=== PATIENT | male | born 1985 | race Hispanic/Latino ===

== ENCOUNTER 2022-03-22 03:38 | Emergency (ER) | payer BC, SELFPAY ==
[2022-03-22] MEDS ORDERED: ONDANSETRON 4 MG/2 ML VIAL ONE (04:12)
[2022-03-22] MEDS ORDERED: MORPHINE 4 MG/ML SYR ONE (04:12)
[2022-03-22 04:21] LABS: Absolute Lymphocytes (CBC) 3.1 K/uL (0.7-4.9); Hematocrit 43.6 % (39.6-49.0); Lymphocytes % 33.3 % (15.3-44.8); MCV 85.9 fL (80-100); MPV 7.7 fL (7.6-11.3); RBC Red Blood Cell Count 5.07 M/uL (4.33-5.43)
[2022-03-22] MEDS ORDERED: NA CHLORIDE 0.9% 1,000 ML ONE (04:24)
[2022-03-22] MEDS ORDERED: HYDROMORPHONE HCL 1 MG/ML INJ ONE (04:27)
[2022-03-22 04:50] LABS: Albumin 3.8 g/dL (3.4-5.0); Bilirubin Total 1.1 mg/dL (0.2-1.0); Potassium 3.2 mmol/L (3.5-5.1); Protein, Total 7.9 g/dL (6.4-8.2)
[2022-03-22] MEDS ORDERED: FENTANYL CITR 100 MCG/2 ML ONE (05:05)
[2022-03-22] MEDS ORDERED: KETOROLAC 30 MG/ML INJ ONE ×2 (06:07→09:05)
--- NOTE | 2022-03-22 10:01 | RAD REPORT ---
EXAM DESCRIPTION: US - Abdomen Exam Limited - 03/22/2022 9:44 am CLINICAL HISTORY: gallbladder COMPARISON: Abdomen Pelvis W Contrast dated 03/22/2022bdomen Pelvis W Contrast dated 03/22/2022 FINDINGS: Several small echogenic foci are seen near the neck of the gallbladder. Posterior acoustic shadowing is seen on a few of the small foci. Small gallstone etiology is favored over polyps. Trace amount of sludge is seen. There is no wall thickening or pericholecystic fluid. No common duct stone or biliary tree dilatation identified. IMPRESSION: Several small less than 5 mm gallstones are present. No wall thickening or pericholecyst ic fluid. No biliary tree abnormality.
--- NOTE | 2022-03-22 10:20 | ER ---
Nurse's Notes [facility] Name: Paulino Lawrence Age: 36 yrs Sex: Male : 1985 Arrival Date: 03/22/2022 Time: 03:40 Bed 6 Private MD: Diagnosis: Other cholelithiasis without obstruction Presentation: 03/22 03:53 Chief complaint: Patient states: "It is so bad, it hurts like hell. I tried to make tw5 myself throw up earlier." Spouse and/or significant other states: "His abdominal pain started around midnight and it has only gotten worse.". Coronavirus screen: Vaccine status: Patient reports receiving the 2nd dose of the covid vaccine. [employer]. Ebola Screen: Patient negative for fever greater than or equal to 101.5 degrees Fahrenheit, and additional compatible Ebola Virus Disease symptoms Patient denies exposure to infectious person. Patient denies travel to an Ebola-affected area in the 21 days before illness onset. Initial Sepsis Screen: Does the patient meet any 2 criteria? No. Patient's initial sepsis screen is negative. Does the patient have a suspected source of infection? Yes: Acute abdominal pain. Risk Assessment: Do you want to hurt yourself or someone else? Patient reports no desire to harm self or others. Onset of symptoms was March 22, 2022 at 00:00. 03:53 Method Of Arrival: Ambulatory tw5 03:53 Acuity: TIN 3 tw5 04:37 Note Pt respirations even non labored denies itching no redness noted. Triage Assessment: 03:54 General: Appears uncomfortable, Behavior is appropriate for age, restless. Pain: tw5 Complains of pain in epigastric area and right upper quadrant Pain currently is 10 out of 10 on a pain scale. GI: Abdomen is non-distended. Historical: - Allergies: 03:54 Hydrocodone-Acetaminophen; tw5 - Home Meds: 03:54 None [Active]; tw5 - PMHx: 03:54 None; tw5 - PSHx: 03:54 Appendectomy; tw5 - Immunization history:: Flu vaccine is not up to date. - Social history:: Smoking status: Patient denies any tobacco usage or history of. Screenin:50 Abuse screen: Denies threats or abuse. Nutritional screening: No deficits noted. jb4 Tuberculosis screening: No symptoms or risk factors identified. Fall Risk None identified. Assessment: 03:50 General: Appears in no apparent distress. uncomfortable, Behavior is calm, cooperative, jb4 appropriate for age. Pain: Complains of pain in abdomen Pain does not radiate. Pain currently is 10 out of 10 on a pain scale. Neuro: Level of Consciousness is awake, alert, obeys commands. Cardiovascular: Patient's skin is warm and dry. Respiratory: Airway is patent Respiratory effort is even, unlabored, Respiratory pattern is regular, symmetrical. GI: Bowel sounds present X 4 quads. Abd is soft X 4 quads Abdomen is tender to palpation X 4 quads. Reports nausea, vomiting. Derm: Skin is intact, Skin is pink, warm \\T\\ dry. Musculoskeletal: Circulation, motion, and sensation intact. Range of motion: intact in all extremities. 05:00 Reassessment: Patient appears in no apparent distress at this time. Patient and/or jb4 family updated on plan of care and expected duration. Pain level reassessed. Patient is alert, oriented x 3, equal unlabored respirations, skin warm/dry/pink. 06:00 Reassessment: Patient appears in no apparent distress at this time. Patient and/or jb4 family updated on plan of care and expected duration. Pain level reassessed. Patient is alert, oriented x 3, equal unlabored respirations, skin warm/dry/pink. 07:00 Reassessment: RECD REPORT FROM ZACH GOMEZ. 36YO HM P/W ABDOMINAL PAIN. U/S PENDING. bp 09:00 Reassessment: No changes from previously documented assessment. Patient and/or family bp updated on plan of care and expected duration. Pain level reassessed. U/S PENDING. AWARE. 09:30 Reassessment: U/S AT B/S. bp 09:41 Reassessment: PER U/S TECH, INITIAL RESULTS UNREMARKABLE. FINAL RESULTS PENDING. bp 10:29 Reassessment: PT D/C HOME AMBULATORY, DX WITH CHOLELITHIASIS. bp Vital Signs: 03:53 BP 119 / 71; Pulse 62; Resp 18; Temp 98.1; Pulse Ox 97% on R/A; Weight 83.91 kg; Height tw5 5 ft. 5 in. (165.10 cm); Pain 10/10; 04:45 BP 138 / 80; Pulse 59; Resp 16; Pulse Ox 100% on R/A; jb4 06:00 BP 135 / 87; Pulse 59; Resp 18; Pulse Ox 100% on R/A; jb4 06:44 BP 118 / 75; Pulse Ox 100% on R/A; kl 09:19 BP 115 / 78; Pulse 62; Resp 16; Pulse Ox 100% ; bp 03:53 Body Mass Index 30.79 (83.91 kg, 165.10 cm) tw5 ED Course: 03:40 Patient arrived in ED. bp1 03:49 Saúl Betancourt, RN is Primary Nurse. jb4 03:50 Gerson Vernon MD is Attending Physician. kdr 03:50 Initial lab(s) drawn, by me, sent to lab. Inserted saline lock: 18 gauge in right jb4 antecubital area, using aseptic technique. Blood collected. 03:54 Triage completed. tw5 03:54 Arm band placed on right wrist. tw5 03:56 Placed in gown. Pulse ox on. NIBP on. Door closed. tw5 05:39 CT Abd/Pelvis - IV Contrast Only In Process Unspecified. EDMS 06:44 Bladder scan completed. 161. kl 06:57 No apparent distress. Resting quietly. kl 07:13 Primary Nurse role handed off by Saúl Betancourt RN jl7 07:15 Edwin Hernandez, PATRICIA is Primary Nurse. bp 07:18 Attending Physician role handed off by Gerson Vernon MD sd2 07:18 Latosha Black MD is Attending Physician. sd2 09:45 US Abdomen Limited In Process Unspecified. EDMS 10:19 Buddy Harvey MD is Referral Physician. sd2 10:29 No provider procedures requiring assistance completed. IV discontinued, intact, bp bleeding controlled, No redness/swelling at site. Pressure dressing applied. Administered Medications: 04:08 Drug: morphine 4 mg Route: IVP; Infused Over: 4 mins; Site: right antecubital; kl 04:37 Follow up: Response: No adverse reaction kl 04:08 Drug: Zofran (Ondansetron) 4 mg Route: IVP; Site: right antecubital; kl 09:00 Follow up: Response: No adverse reaction bp 04:10 Not Given (Duplicate Order): morphine 4 mg IVP once over 4 mins jb4 04:10 Not Given (Duplicate Order): Zofran (Ondansetron) 4 mg IVP once; over 2 minutes jb4 04:18 Drug: NS 0.9% 1000 ml Route: IV; Rate: 1 bolus; Site: right antecubital; jb4 10:30 Follow up: IV Status: Infusion continued; IV Intake: 1000ml bp 04:24 Not Given (Physician Discretion): fentaNYL (PF) 50 mcg IVP once kl 04:24 Drug: Dilaudid (HYDROmorphone) 1 mg Route: IVP; Site: right antecubital; kl 04:37 Follow up: Response: No adverse reaction kl 05:00 Drug: fentaNYL (PF) 50 mcg Route: IVP; Site: right antecubital; jb4 09:00 Follow up: Response: No adverse reaction bp 06:07 Drug: Ketorolac 15 mg Route: IVP; Site: right antecubital; kl 06:30 Follow up: Response: Marked relief of symptoms kl 08:59 Drug: Ketorolac 15 mg Route: IVP; Site: right antecubital; bp 10:30 Follow up: Response: No adverse reaction; Pain is decreased bp Medication: 03:50 VIS not applicable for this client. jb4 Intake: 10:30 IV: 1000ml; Total: 1000ml. bp Outcome: 10:20 Discharge ordered by . sd2 10:29 Discharged to home ambulatory. bp 10:29 Condition: stable 10:29 Discharge instructions given to patient, Instructed on discharge instructions, follow up and referral plans. medication usage, Demonstrated understanding of instructions, follow-up care, medications, Prescriptions given X 2. 10:30 Patient left the ED. bp Signatures: Dispatcher [employer] EDMS Corinne Strickland RN RN kl Rittger, Kevin, MD MD kdr Bryson, James, RN RN jb4 Jourdan Brandon RN RN jl7 Edwin Hernandez RN RN bp Paniauga, Brittany bp1 Wood, Tiffany 5 Latosha Black MD MD sd2
--- NOTE | 2022-03-22 10:20 | EDPHYS ---
Physician Documentation [facility] Name: Paulino Lawrence Age: 36 yrs Sex: Male : 1985 Arrival Date: 03/22/2022 Time: 03:40 Bed 6 Private MD: ED Physician Latosha Black HPI: 03/22 04:07 This 36 yrs old Male presents to ER via Ambulatory with complaints of kdr Abdominal Pain. 04:07 The patient presents with abdominal pain that is diffuse. Onset: The symptoms/episode kdr began/occurred acutely, suddenly, at 00:00. The symptoms do not radiate. Associated signs and symptoms: Pertinent positives: nausea. The symptoms are described as achy, crampy, sharp, waxing/waning. Modifying factors: The symptoms are alleviated by nothing, the symptoms are aggravated by nothing. Severity of pain: At its worst the pain was severe incapacitating in the emergency department the pain is actually worse. The patient has experienced similar episodes in the past, a few times. The patient has not recently seen a physician. Historical: - Allergies: 03:54 Hydrocodone-Acetaminophen; tw5 - Home Meds: 03:54 None [Active]; tw5 - PMHx: 03:54 None; tw5 - PSHx: 03:54 Appendectomy; tw5 - Immunization history:: Flu vaccine is not up to date. - Social history:: Smoking status: Patient denies any tobacco usage or history of. ROS: 04:07 Constitutional: Negative for fever, chills, and weight loss, Eyes: Negative for injury, kdr pain, redness, and discharge, ENT: Negative for injury, pain, and discharge, Neck: Negative for injury, pain, and swelling, Cardiovascular: Negative for chest pain, palpitations, and edema, Respiratory: Negative for shortness of breath, cough, wheezing, and pleuritic chest pain, Back: Negative for injury and pain, : Negative for injury, bleeding, discharge, and swelling, MS/Extremity: Negative for injury and deformity, Skin: Negative for injury, rash, and discoloration, Neuro: Negative for headache, weakness, numbness, tingling, and seizure activity. Psych: Negative for depression, anxiety, suicide ideation, homicidal ideation, and hallucinations, Allergy/Immunology: Negative for hives, rash, and allergies, Endocrine: Negative for neck swelling, polydipsia, polyuria, polyphagia, and marked weight changes, Hematologic/Lymphatic: Negative for swollen nodes, abnormal bleeding, and unusual bruising. 04:07 Abdomen/GI: Positive for abdominal pain, nausea, Negative for vomiting, diarrhea, constipation, abdominal cramps, abdominal distension, anorexia, dysphagia, hematemesis, black/tarry stool, rectal pain, rectal bleeding, bowel incontinence. Exam: 04:07 Constitutional: This is a well developed, well nourished patient who is awake, alert, kdr and in no acute distress. Head/Face: Normocephalic, atraumatic. Eyes: Pupils equal round and reactive to light, extra-ocular motions intact. Lids and lashes normal. Conjunctiva and sclera are non-icteric and not injected. Cornea within normal limits. Periorbital areas with no swelling, redness, or edema. Neck: Trachea midline, no thyromegaly or masses palpated, and no cervical lymphadenopathy. Supple, full range of motion without nuchal rigidity, or vertebral point tenderness. No Meningismus. Chest/axilla: Normal chest wall appearance and motion. Nontender with no deformity. No lesions are appreciated. Cardiovascular: Regular rate and rhythm with a normal S1 and S2. No gallops, murmurs, or rubs. Normal PMI, no JVD. No pulse deficits. Respiratory: Lungs have equal breath sounds bilaterally, clear to auscultation and percussion. No rales, rhonchi or wheezes noted. No increased work of breathing, no retractions or nasal flaring. Back: No spinal tenderness. No costovertebral tenderness. Full range of motion. Skin: Warm, dry with normal turgor. Normal color with no rashes, no lesions, and no evidence of cellulitis. MS/ Extremity: Pulses equal, no cyanosis. Neurovascular intact. Full, normal range of motion. Neuro: Awake and alert, GCS 15, oriented to person, place, time, and situation. Cranial nerves II-XII grossly intact. Motor strength 5/5 in all extremities. Sensory grossly intact. Cerebellar exam normal. Normal gait. Psych: Awake, alert, with orientation to person, place and time. Behavior, mood, and affect are within normal limits. 04:07 Abdomen/GI: Inspection: abdomen appears normal, Bowel sounds: diminished, in all quadrants, Palpation: mild abdominal tenderness, in all quadrants. Vital Signs: 03:53 BP 119 / 71; Pulse 62; Resp 18; Temp 98.1; Pulse Ox 97% on R/A; Weight 83.91 kg; Height tw5 5 ft. 5 in. (165.10 cm); Pain 10/10; 04:45 BP 138 / 80; Pulse 59; Resp 16; Pulse Ox 100% on R/A; jb4 06:00 BP 135 / 87; Pulse 59; Resp 18; Pulse Ox 100% on R/A; jb4 06:44 BP 118 / 75; Pulse Ox 100% on R/A; kl 09:19 BP 115 / 78; Pulse 62; Resp 16; Pulse Ox 100% ; bp 03:53 Body Mass Index 30.79 (83.91 kg, 165.10 cm) tw5 MDM: 04:07 Data reviewed: vital signs, nurses notes, lab test result(s), radiologic studies. kdr Counseling: I had a detailed discussion with the patient and/or guardian regarding: the historical points, exam findings, and any diagnostic results supporting the discharge/admit diagnosis, lab results, radiology results. 07:18 Transition of care: Care assumed from Gerson Vernon MD. ED course: Pt pending US. CT sd2 scan with cholelithiasis. Labs unremarkable. Will re-evaluate pain control after US for disposition.. 07:19 Patient medically screened. sd2 10:17 ED course: US with cholelithiasis but no evidence of cholecystitis. Normal CBD sd2 diameter. Pt's pain controlled with Toradol. Advised of all results and need for follow up outpatient with general surgery and dietary changes to be made. Pt comfortable with plan for discharge and outpatient follow up and verbalizes understanding of strict return precautions.. 03/22 03:51 Order name: CBC with Diff; Complete Time: 07:17 kdr 03/22 03:51 Order name: CMP; Complete Time: 07:17 kdr 03/22 03:51 Order name: Lipase; Complete Time: 07:17 kdr 03/22 04:06 Order name: CT Abd/Pelvis - IV Contrast Only kdr 03/22 07:16 Order name: US Abdomen Limited; Complete Time: 10:14 eb 03/22 03:51 Order name: IV Saline Lock; Complete Time: 03:58 kdr 03/22 03:51 Order name: Labs collected and sent; Complete Time: 03:58 kdr Administered Medications: 04:08 Drug: morphine 4 mg Route: IVP; Infused Over: 4 mins; Site: right antecubital; kl 04:37 Follow up: Response: No adverse reaction kl 04:08 Drug: Zofran (Ondansetron) 4 mg Route: IVP; Site: right antecubital; kl 09:00 Follow up: Response: No adverse reaction bp 04:10 Not Given (Duplicate Order): morphine 4 mg IVP once over 4 mins jb4 04:10 Not Given (Duplicate Order): Zofran (Ondansetron) 4 mg IVP once; over 2 minutes jb4 04:18 Drug: NS 0.9% 1000 ml Route: IV; Rate: 1 bolus; Site: right antecubital; jb4 10:30 Follow up: IV Status: Infusion continued; IV Intake: 1000ml bp 04:24 Not Given (Physician Discretion): fentaNYL (PF) 50 mcg IVP once kl 04:24 Drug: Dilaudid (HYDROmorphone) 1 mg Route: IVP; Site: right antecubital; kl 04:37 Follow up: Response: No adverse reaction kl 05:00 Drug: fentaNYL (PF) 50 mcg Route: IVP; Site: right antecubital; jb4 09:00 Follow up: Response: No adverse reaction bp 06:07 Drug: Ketorolac 15 mg Route: IVP; Site: right antecubital; kl 06:30 Follow up: Response: Marked relief of symptoms kl 08:59 Drug: Ketorolac 15 mg Route: IVP; Site: right antecubital; bp 10:30 Follow up: Response: No adverse reaction; Pain is decreased bp Disposition Summary: 03/22/22 10:20 Discharge Ordered Location: Home sd2 Problem: new sd2 Symptoms: have improved sd2 Condition: Stable sd2 Diagnosis - Other cholelithiasis without obstruction sd2 Followup: sd2 - With: Buddy Harvey MD - When: 2 - 3 days - Reason: Recheck today's complaints, Continuance of care Followup: sd2 - With: Emergency Department - When: As needed - Reason: Discharge Instructions: - Discharge Summary Sheet kl - Cholelithiasis sd2 - Gallbladder Eating Plan sd2 Forms: - SBAR form kl - Medication Reconciliation Form sd2 - Thank You Letter sd2 - Antibiotic Education sd2 - Prescription Opioid Use sd2 Prescriptions: - Ibuprofen 800 mg Oral Tablet - take 1 tablet by ORAL route every 8 hours As needed take with food; 20 tablet; sd2 Refills: 0, Product Selection Permitted - Tramadol 50 mg Oral Tablet - take 1 tablet by ORAL route every 6 hours as needed; 12 tablet; Refills: 0, sd2 Product Selection Permitted Signatures: Dispatcher [employer] Corinne Dumont RN RN kl eGrson Vernon MD MD [facility] Saúl Betancourt RN RN jb4 Edwin Hernandez RN RN bp Wood, Tiffany 5 Latosha Black MD MD sd2
[2022-03-22 10:36] VITALS: TEMP 98.1
[2022-03-22 10:38] VITALS: O2SAT 100
[2022-03-22 10:46] VITALS: BP 115/78
--- NOTE | 2022-03-23 14:00 | RAD REPORT ---
EXAM DESCRIPTION: CT - Abdomen Pelvis W Contrast - 03/22/2022 7:13 am CLINICAL HISTORY: Abdominal pain, acute, nonlocalized COMPARISON: None TECHNIQUE: Contiguous axial sections of the abdomen and pelvis were obtained following administratio n of intravenous contrast. Sagittal and coronal reformatted images are generated for review. This exa m was performed according to our departmental dose-optimization program, which includes automated exp osure control, adjustment of the mA and/or kV according to patient size and/or use of iterative recon struction technique. FINDINGS: Lower Chest: The imaged lung bases are clear. No pleural or pericardial effusion. Organs: Liver and spleen are normal. The gallbladder is moderately distended with multiple stones. Th e pancreas, adrenal glands and kidneys are normal. GI/Bowel: No CT findings of bowel obstruction. No acute bowel wall inflammatory change. The appendix is not visualized. Pelvis: The bladder and rectum are normal. No pelvic free fluid. No pelvic lymphadenopathy. Peritoneum/Retroperitoneum: No free fluid or free air. No mesenteric or retroperitoneal lymphadenopat hy. Bones/Soft Tissues: There are no suspicious-appearing lytic or blastic osseous lesions. IMPRESSION: Cholelithiasis. RECOMMENDATIONS: Electronically signed by: Charli Gan MD 03/22/2022 7:03 AM CDT Due to temporary technical issues with the PACS/Fluency reporting system, reports are being signed by the in house radiologists without review as a courtesy to insure prompt reporting. The interpreting radiologist is fully responsible for the content of the report.
== END 2022-03-22 10:30 | disposition home or self-care (01) ==
LOC: ER 03:38
DX: K80.80 Other cholelithiasis without obstruction (principal); Z88.5 Allergy status to narcotic agent
CPT/HCPCS: 36415; 74177; 76705; 80053; 83690; 85025; 96361; 96374; 96375; 99284; J1170; J2405; J3010; J7030; Q9967

== ENCOUNTER 2024-03-10 12:31 | Emergency (ER) | payer SELFPAY ==
[2024-03-10] MEDS ORDERED: LIDOCAINE 2% W/EPI 1:200,000 MPF 20 ML VIAL IM ONE (12:52)
[2024-03-10] MEDS ORDERED: CEPHALEXIN 250 MG CAP ONE (13:10)
--- NOTE | 2024-03-10 13:44 | RAD REPORT ---
EXAM DESCRIPTION: RAD - Elbow Right 3 View - 03/10/2024 1:20 pm CLINICAL HISTORY: PAIN COMPARISON: No comparisons FINDINGS: Moderate soft tissue swelling is seen adjacent the medial epicondyle. This indicate bursit is. There is similar swelling also seen adjacent to the olecranon process. No fracture.
--- NOTE | 2024-03-10 13:50 | ER ---
Nurse's Notes [facility] Name: Paulino Lawrence Age: 38 yrs Sex: Male : 1985 Arrival Date: 03/10/2024 Time: 12:31 Bed 15 Private MD: Diagnosis: Olecranon bursitis, right elbow-hemorrhagic Presentation: 03/10 12:51 Chief complaint: Right elbow swelling and pain after mechanical fall from standing 2 hb weeks ago. Coronavirus screen: At this time, the client does not indicate any symptoms associated with coronavirus-19. Ebola Screen: No symptoms or risks identified at this time. Initial Sepsis Screen: Does the patient meet any 2 criteria? No. Patient's initial sepsis screen is negative. Does the patient have a suspected source of infection? No. Patient's initial sepsis screen is negative. Risk Assessment: Do you want to hurt yourself or someone else? Patient reports no desire to harm self or others. Onset of symptoms was February 25, 2024. 12:51 Method Of Arrival: Ambulatory hb 12:51 Acuity: TIN 4 hb Historical: - Allergies: 12:41 Hydrocodone-Acetaminophen; ld1 - PMHx: 13:44 None; ld1 - PSHx: 12:41 Appendectomy; ld1 - Immunization history:: Adult Immunizations up to date. - Infectious Disease History:: Denies. - Social history:: Smoking status: Patient denies any tobacco usage or history of. - Family history:: not pertinent. Screenin:03 [facility] ED Fall Risk Assessment (Adult) History of falling in the last 3 months, ld1 including since admission No falls in past 3 months (0 pts) Confusion or Disorientation No (0 pts) Intoxicated or Sedated No (0 pts) Impaired Gait No (0 pts) Mobility Assist Device Used No (0 pt) Altered Elimination No (0 pt) Score/Fall Risk Level 0 - 2 = Low Risk. [facility] ED Fall Risk Assessment (Adult) Score/Fall Risk Level 0 - 2 = Low Risk Oriented to surroundings, Maintained a safe environment, Educated pt \T\ family on fall prevention, incl call for assistance when getting out of bed, Assessed \T\ reinforced patient's understanding of fall precautions, Provided non-skid footwear, Hourly rounding (assess needs \T\ fall precautionary measures) done, Used ambulatory aids as needed (educated on \T\ assisted with), Used gait belt as appropriate. Abuse screen: Denies threats or abuse. Denies injuries from another. Nutritional screening: No deficits noted. Tuberculosis screening: No symptoms or risk factors identified. Assessment: 13:03 General: Appears in no apparent distress. comfortable, Behavior is calm, cooperative, ld1 appropriate for age. Pain: Denies pain. Neuro: Level of Consciousness is awake, alert, obeys commands, Oriented to person, place, time, situation, Appropriate for age. Cardiovascular: Capillary refill < 3 seconds Patient's skin is warm and dry. Respiratory: Airway is patent Respiratory effort is even, unlabored. GI: Abdomen is flat, non-distended. : No signs and/or symptoms were reported regarding the genitourinary system. EENT: No signs and/or symptoms were reported regarding the EENT system. Derm: No signs and/or symptoms reported regarding the dermatologic system. Musculoskeletal: No signs and/or symptoms reported regarding the musculoskeletal system. 13:03 Reassessment: Swelling to right elbow. ld1 13:44 Reassessment: Patient appears in no apparent distress at this time. No changes from ld1 previously documented assessment. Patient and/or family updated on plan of care and expected duration. Pain level reassessed. Patient states symptoms have improved. Vital Signs: 12:51 BP 134 / 93; Pulse 71; Resp 16; Temp 98.2; Pulse Ox 98% on R/A; Pain 3/10; hb 13:03 BP 126 / 91; Pulse 71; Resp 18; Pulse Ox 100% on R/A; ld1 13:44 BP 131 / 89; Pulse 70; Resp 18; Pulse Ox 97% ; ld1 12:51 Pain Scale: Adult hb ED Course: 12:34 Patient arrived in ED. ra3 12:37 Tobi Emery MD is Attending Physician. jose armando 12:41 Azucena Bazzi RN is Primary Nurse. ld1 12:58 Triage completed. hb 12:58 Arm band placed on. hb 13:03 Patient has correct armband on for positive identification. Placed in gown. Bed in low ld1 position. Call light in reach. Side rails up X2. Pulse ox on. NIBP on. Door closed. Noise minimized. Warm blanket given. 13:03 Patient did not have IV access during this emergency room visit. ld1 13:22 Elbow Right 3 View XRAY In Process Unspecified. EDMS 13:40 Assist provider with I \T\ D: of an abscess on right elbow Set up I\T\D tray. Performed by ld 1 Tobi Emery MD Dressing with 4X4s, Patient tolerated well. 13:48 Nathan Canela MD is Referral Physician. [facility] Administered Medications: 13:16 Drug: Cephalexin PO 500 mg PO once Route: PO; ld1 13:45 Follow up: Response: No adverse reaction ld1 13:30 Drug: Lidocaine-Epinephrine Infiltration -1%: (1:100,000) 3 ml 20 ml Infiltration once; ld1 to bedside {Note: Administered by Dr. Emery.} Volume: 20 ml; Route: Infiltration; 13:50 Follow up: Response: No adverse reaction ld1 13:43 Drug: Mupirocin Topical Ointment 2 % 1 application Topical once Route: Topical; Site: ld1 affected area; 13:45 Follow up: Response: No adverse reaction ld1 Medication: 13:03 VIS not applicable for this client. ld1 Outcome: 13:49 Discharge ordered by . [facility] 14:00 Discharged to home ambulatory, ld1 14:00 Condition: stable 14:00 Discharge instructions given to patient, Instructed on discharge instructions, follow up and referral plans. medication usage, Demonstrated understanding of instructions, follow-up care, medications, Prescriptions given X 2, 14:00 Patient left the ED. ld1 Signatures: Dispatcher [employer] YENNIFEROH Tobi Emery MD MD cha Baxter, Heather RN PATRICIA Azucena Bazzi RN RN ld1 Linnea Fowler ra3
--- NOTE | 2024-03-10 13:50 | EDPHYS ---
Physician Documentation [facility] Name: Paulino Lawrence Age: 38 yrs Sex: Male : 1985 Arrival Date: 03/10/2024 Time: 12:31 Bed 15 Private MD: ED Physician Tobi Emery HPI: 03/10 13:43 This 38 yrs old Male presents to ER via Ambulatory with complaints of fluid in jose armando elbow. 13:43 The patient or guardian complains of an abrasion, contusion, injury, a laceration, jose armando running out of medications: pain, a rash, spasm, swelling, weakness. 13:43 The complaints affect the right elbow. Context: The problem was sustained at home. jose armando Onset: The symptoms/episode began/occurred 3 day(s) ago. Treatment prior to arrival includes: no previous treatment. Modifying factors: The symptoms are alleviated by nothing. the symptoms are aggravated by bending arm. Associated signs and symptoms: The patient has no apparent associated signs or symptoms. Severity of symptoms: At their worst the symptoms were mild, in the emergency department the symptoms are unchanged. The patient has not experienced similar symptoms in the past. Historical: - Allergies: 12:41 Hydrocodone-Acetaminophen; ld1 - PMHx: 13:44 None; ld1 - PSHx: 12:41 Appendectomy; ld1 - Immunization history:: Adult Immunizations up to date. - Infectious Disease History:: Denies. - Social history:: Smoking status: Patient denies any tobacco usage or history of. - Family history:: not pertinent. ROS: 13:43 Constitutional: Negative for fever, chills, and weight loss, Eyes: Negative for injury, jose armando pain, redness, and discharge, ENT: Negative for injury, pain, and discharge, Neck: Negative for injury, pain, and swelling, Cardiovascular: Negative for chest pain, palpitations, and edema, Respiratory: Negative for shortness of breath, cough, wheezing, and pleuritic chest pain, Abdomen/GI: Negative for abdominal pain, nausea, vomiting, diarrhea, and constipation, Back: Negative for injury and pain, : Negative for injury, bleeding, discharge, and swelling, Skin: Negative for injury, rash, and discoloration, Neuro: Negative for headache, weakness, numbness, tingling, and seizure, Psych: Negative for depression, anxiety, suicide ideation, homicidal ideation, and hallucinations, Allergy/Immunology: Negative for hives, rash, and allergies, Endocrine: Negative for neck swelling, polydipsia, polyuria, polyphagia, and marked weight changes, Hematologic/Lymphatic: Negative for swollen nodes, abnormal bleeding, and unusual bruising, 13:43 MS/extremity: Positive for injury or acute deformity, pain, swelling, tenderness, of the right elbow, Exam: 13:43 Constitutional: This is a well developed, well nourished patient who is awake, alert, jose armando and in no acute distress. Head/Face: Normocephalic, atraumatic. Eyes: Pupils equal round and reactive to light, extra-ocular motions intact. Lids and lashes normal. Conjunctiva and sclera are non-icteric and not injected. Cornea within normal limits. Periorbital areas with no swelling, redness, or edema. ENT: Nares patent. No nasal discharge, no septal abnormalities noted. Tympanic membranes are normal and external auditory canals are clear. Oropharynx with no redness, swelling, or masses, exudates, or evidence of obstruction, uvula midline. Mucous membranes moist. Neck: Trachea midline, no thyromegaly or masses palpated, and no cervical lymphadenopathy. Supple, full range of motion without nuchal rigidity, or vertebral point tenderness. No Meningismus. Chest/axilla: Normal chest wall appearance and motion. Nontender with no deformity. No lesions are appreciated. Cardiovascular: Regular rate and rhythm with a normal S1 and S2. No gallops, murmurs, or rubs. Normal PMI, no JVD. No pulse deficits. Respiratory: Lungs have equal breath sounds bilaterally, clear to auscultation and percussion. No rales, rhonchi or wheezes noted. No increased work of breathing, no retractions or nasal flaring. Abdomen/GI: Soft, non-tender, with normal bowel sounds. No distension or tympany. No guarding or rebound. No evidence of tenderness throughout. Back: No spinal tenderness. No costovertebral tenderness. Full range of motion. Male : Normal genitalia with no discharge or lesions. Skin: Warm, dry with normal turgor. Normal color with no rashes, no lesions, and no evidence of cellulitis. Neuro: Awake and alert, GCS 15, oriented to person, place, time, and situation. Cranial nerves II-XII grossly intact. Motor strength 5/5 in all extremities. Sensory grossly intact. Cerebellar exam normal. Normal gait. Psych: Awake, alert, with orientation to person, place and time. Behavior, mood, and affect are within normal limits. 13:43 Musculoskeletal/extremity: ROM: full active range of motion, full passive range of motion, Circulation is intact in all extremities. Sensation intact. Compartment Syndrome exam of affected extremity: no pain, Joints: All joints are normal except swelling, right olecranon bursa, Vital Signs: 12:51 BP 134 / 93; Pulse 71; Resp 16; Temp 98.2; Pulse Ox 98% on R/A; Pain 3/10; hb 13:03 BP 126 / 91; Pulse 71; Resp 18; Pulse Ox 100% on R/A; ld1 13:44 BP 131 / 89; Pulse 70; Resp 18; Pulse Ox 97% ; ld1 12:51 Pain Scale: Adult hb Procedures: 13:43 Performed sterile aspiration of hemorrhagic bursa, lido 3 cc w epi, sterile provadone jose armando prep x 4, 15 cc bloody bursa. MDM: 12:37 Patient medically screened. jose armando 13:43 Differential diagnosis: dislocation, closed fracture, contusion, abrasion, tendonitis. [facility] Data reviewed: vital signs, nurses notes, radiologic studies, plain films. Consideration of Admission/Observation Escalation of care including admission/observation considered. I considered the following discharge prescriptions or medication management in the emergency department Medications were administered in the Emergency Department. See MAR. Independent interpretation of the following test(s) in the Emergency Department X-Ray: My interpretation is right elbow. Test considered but Not performed: Labs: no cbc, no comp. Care significantly affected by the following chronic conditions: none. 03/10 12:57 Order name: Elbow Right 3 View XRAY [facility] 03/10 13:01 Order name: Dressing - Wound; Complete Time: 13:03 [facility] 03/10 13:01 Order name: Gloves, Sterile; Complete Time: 13:03 [facility] 03/10 13:01 Order name: Setup Suture Tray; Complete Time: 13:03 [facility] 03/10 13:01 Order name: Chaitanya wrap-joint; Complete Time: 13:03 [facility] 03/10 13:42 Order name: Ice pack; Complete Time: 13:45 jose armando Administered Medications: 13:16 Drug: Cephalexin PO 500 mg PO once Route: PO; ld1 13:45 Follow up: Response: No adverse reaction ld1 13:30 Drug: Lidocaine-Epinephrine Infiltration -1%: (1:100,000) 3 ml 20 ml Infiltration once; ld1 to bedside {Note: Administered by Dr. Emery.} Volume: 20 ml; Route: Infiltration; 13:50 Follow up: Response: No adverse reaction ld1 13:43 Drug: Mupirocin Topical Ointment 2 % 1 application Topical once Route: Topical; Site: ld1 affected area; 13:45 Follow up: Response: No adverse reaction ld1 Disposition Summary: 03/10/24 13:49 Discharge Ordered Notes: Location: Home [facility] Problem: new jose armando Symptoms: have improved jose armando Condition: Stable jose armando Diagnosis - Olecranon bursitis, right elbow - hemorrhagic jose armando Followup: jose armando - With: Private Physician - When: 2 - 3 days - Reason: Recheck today's complaints, Continuance of care, Re-evaluation by your physician Followup: jose armando - With: Nathan Canela MD - When: 2 - 3 days - Reason: Recheck today's complaints, Continuance of care, Re-evaluation by your physician Discharge Instructions: - Discharge Summary Sheet jose armando - Bursitis jose armando - RICE Therapy for Routine Care of Injuries jose armando - RICE Therapy for Routine Care of Injuries, Sahg-jc-Oija jose armando - Elbow Bursitis jose armando - Bursitis, [id number]-qh-Scts jose armando - Elbow Bursitis, Ziof-cf-Vsie [facility] Forms: - Medication Reconciliation Form jose armando - Antibiotic Education jose armando - Prescription Opioid Use jose armando - Patient Portal Instructions [facility] - Leadership Thank You Letter [facility] Prescriptions: - Centany 2 % Topical ointment - apply 1 application TOPICAL route 3 times per day; 15 gram; Refills: 0, Product [facility] Selection Permitted - Cephalexin 500 mg Oral capsule - take 1 capsule ORAL route every 6 hours for 7 days; 28 capsule; Refills: 0, [facility] Product Selection Permitted - Ibuprofen 600 mg Oral Tablet - take 1 tablet ORAL route every 6 hours As needed take with food; 30 tablet; jose armando Refills: 0, Product Selection Permitted Signatures: Dispatcher [employer] Tobi Rajput MD MD cha Baxter, Heather, RN RN Azucena Bazzi RN RN ld1
[2024-03-10 14:14] VITALS: TEMP 98.2
[2024-03-10 14:16] VITALS: BP 131/89; O2SAT 97
== END 2024-03-10 14:00 | disposition home or self-care (01) ==
LOC: ER 12:31
PROC: 0R9L3ZX Drainage of Right Elbow Joint, Percutaneous Approach, Diagnostic (ICD-10-PCS; principal; 2024-03-10)
DX: M70.21 Olecranon bursitis, right elbow (principal)
CPT/HCPCS: 99284

== ENCOUNTER 2024-10-18 22:37 | Emergency (ER) | payer SELFPAY ==
[2024-10-18] MEDS ORDERED: VANCOMYCIN 1 GM/VIAL ONE (23:42)
[2024-10-18] MEDS ORDERED: SMZ./TMP. 800/160 MG TABLET ONE (23:43)
[2024-10-18] MEDS ORDERED: CEFEPIME 2 GM VIAL ONE (23:43)
[2024-10-18] MEDS ORDERED: NA CHLORIDE 0.9% 100 ML ONE (23:43)
[2024-10-18] MEDS ORDERED: MORPHINE 4 MG/ML SYR ONE (23:43)
[2024-10-18] MEDS ORDERED: KETOROLAC 30 MG/ML INJ ONE (23:43)
[2024-10-18 23:44] LABS: Absolute Eosinophils 0.3 K/uL (0-0.5); Basophils % 0.2 % (0-1.3); MCV 86.5 fL (80-100)
[2024-10-18] MEDS ORDERED: NA CHLORIDE 0.9% 1,000 ML ONE (23:44)
[2024-10-18] MEDS ORDERED: SILVER SULFADIAZINE 1% 25 GM TOP ONE (23:44)
[2024-10-18 23:53] LABS: Albumin 3.8 g/dL (3.4-5.0); Albumin/Globulin Ratio 0.8 (1.1-1.8); Anion Gap 6.8 mEq/L (5.0-15.0); Bilirubin Total 2.1 mg/dL (0.2-1.0); Globulin 4.6 g/dL (2.3-3.5); Potassium 3.8 mEq/L (3.5-5.1); Protein, Total 8.4 g/dL (6.4-8.2)
[2024-10-18 23:54] LABS: Absolute Lymphocytes (CBC) 1.2 K/uL (0.7-4.9); Absolute Neutrophil 9.6 K/uL (1.8-8.0); Eosinophils % 2.5 % (0-4.4); Hematocrit 49.6 % (39.6-49.0); Hemoglobin 17.3 g/dL (13.6-17.9); Lymphocytes % 10.2 % (15.3-44.8); MCH 30.1 pg (27.0-35.0); MCHC 34.9 g/dL (32.0-36.0); MPV 8.2 fL (7.6-11.3); Monocytes % 8.5 % (3.3-12.3); Neutrophils % 78.6 % (41.7-73.7); Nucleated Red Blood Cells % 0.1 % (0-0); Platelets 283 thou/uL (152-406); RBC Red Blood Cell Count 5.74 M/uL (4.33-5.43); Red Cell Distribution Width 13.2 % (12.1-15.2)
[2024-10-18] MEDS ORDERED: NA CHLORIDE 0.9% 500 ML ONE (23:59)
[2024-10-19] MEDS ORDERED: ONDANSETRON 4 MG/2 ML VIAL ONE (00:12)
[2024-10-19] MEDS ORDERED: MORPHINE 4 MG/ML SYR ONE ×2 (00:59→03:10)
[2024-10-19] MEDS ORDERED: METOCLOPRAMIDE 10 MG/2mL INJ ONE (03:09)
[2024-10-19] MEDS ORDERED: NA CHLORIDE 0.9% 100 ML ONE (03:10)
[2024-10-19] MEDS ORDERED: SILVER SULFADIAZINE 1% 25 GM TOP ONE (03:51)
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
[2024-10-19 05:49] VITALS: TEMP 98.2; O2SAT 97
[2024-10-19 05:50] VITALS: BP 112/79
== END 2024-10-19 04:30 | disposition home or self-care (01) ==
LOC: ER 22:37
DX: T25.292A Burn of second degree of multiple sites of left ankle and foot, initial encounter (principal); T25.291A Burn of second degree of multiple sites of right ankle and foot, initial encounter
CPT/HCPCS: 36415; 80053; 82550; 85025; J0692; J2405; J2765; J3370; J7030; J7040